=== PATIENT | male | born 1950 | race Caucasian/White ===

== ENCOUNTER 2017-01-02 18:27 | Emergency (ER) | payer MEDICAID, MEDICARE ==
[2017-01-02] MEDS ORDERED: HYDROMORPHONE HCL 1 MG/ML CPJ IVP ONE (18:43)
[2017-01-02] MEDS ORDERED: ONDANSETRON HCL IV 4 MG/2 ML VIAL IVP ONE (18:43)
[2017-01-02] MEDS ORDERED: 0.9 % SODIUM CHLORIDE 1000ML 500 ML IV SCH (18:45)
--- NOTE | 2017-01-02 18:48 | Emergency Department Record ---
History of Present Illness - General Chief Complaint: Back Pain/Injury Stated Complaint: BACK AND SIDE PAIN Time Seen by Provider: 01/02/17 18:43 Source: Patient Mode of Arrival: Ambulatory Limitations: No limitations - History of Present Illness Initial Comments: 66 yo male presents to ED with a CC of sudden-onset right sided flank pain that began approximately 8.5 hours ago. Patient reports that the pain radiates around to the right lower abdomen. Patient reports a previous history of low back pain, [facility], but reports today's symptoms are different. Patient took Valium that he reports did not help much. Patient denies fevers, chills, abdominal pain, or vomiting symptoms. Patient is s/p ninfa and partial liver resection for previous cancer. MD Complaint: Back pain Onset/Timin -: Hour(s) Similar Symptoms Previously: Yes Place: Home Severity scale (1-10): 10 Quality: Sharp, Stabbing Consistency: Constant Improves With: None Worsens With: None Context: Unknown Treatments Prior to Arrival: Prescription analgesics - Related Data Previous Rx's Medication Instructions Recorded Hydrocodone/Acetaminophen [B[place]ox[place] 1 tab PO Q6H PRN #20 tab 01/02/17 7.5mg/325mg] Travel Screening - Travel/Exposure Within Last 30 Days Have you traveled within the last 30 days?: No - Travel/Exposure Within Last Year Have you traveled outside the [place] in the last year?: No - Additonal Travel Details Have you been exposed to anyone with a communicable illness?: No - Travel Symptoms Symptom Screening: None Review of Systems Constitutional: Denies: Chills, Fever, Malaise, Night sweats Eyes: Denies: Eye discharge, Eye pain ENT: Denies: Congestion, Ear pain, Epistaxis Respiratory: Denies: Cough, Dyspnea Cardiovascular: Denies: Chest pain, Dyspnea on exertion Endocrine: Denies: Fatigue, Heat or cold intolerance Gastrointestinal: Denies: Abdominal pain, Nausea, Vomiting Genitourinary: Denies: Incontinence, Retention Musculoskeletal: Reports: Back pain. Denies: Arthralgia, Gout, Joint swelling Skin: Denies: Bruising, Change in color, Change in hair/nails Neurological: Denies: Abnormal gait, Confusion, Headache, Seizure Psychiatric: Denies: Anxiety Hematological/Lymphatic: Denies: Anemia, Blood Clots Past Medical History - SOCIAL HISTORY Smoking Status: Never smoker Alcohol Use: None Drug Use: None - RESPIRATORY Hx Respiratory Disorders: No - CARDIOVASCULAR Hx Cardio Disorders: Yes Hx Hypertension: Yes - NEURO Hx Neuro Disorders: No - GI Hx GI Disorders: Yes Hx Liver Disease: Yes - Hx Genitourinary Disorders: No - ENDOCRINE Hx Endocrine Disorders: No - MUSCULOSKELETAL Hx Musculoskeletal Disorders: Yes - PSYCH Hx Psych Problems: No - HEMATOLOGY/ONCOLOGY Hx Hematology/Oncology Disorders: No Family Medical History Any Significant Family History?: No Hx Cancer: Father Hx Heart Disease: Father, Mother Physical Exam - General General Appearance: Alert, Oriented x3, Cooperative, Moderate distress (due to pain symptoms) Limitations: No limitations - Head Head exam: Atraumatic, Normocephalic, Normal inspection Head exam detail: negative: Abrasion, Contusion, Bautista's sign, General tenderness, Hematoma, Laceration - Eye Eye exam: Normal appearance. negative: Conjunctival injection, Periorbital swelling, Periorbital tenderness, Scleral icterus - ENT Ear exam: negative: Auricular hematoma, Auricular trauma Nasal Exam: negative: Active bleeding, Discharge, Dried blood, Foreign body, Sinus tenderness Mouth exam: negative: Drooling, Laceration, Muffled voice, Tongue elevation - Neck Neck exam: Normal inspection. negative: Meningismus, Tenderness - Respiratory Respiratory exam: Normal lung sounds bilaterally. negative: Respiratory distress, Rhonchi, Stridor, Wheezes - Cardiovascular Cardiovascular Exam: Regular rate, Normal rhythm, Normal heart sounds - GI/Abdominal GI/Abdominal exam: Soft. negative: Distended, Rebound, Rigid, Tenderness - Rectal Rectal exam: Deferred - exam: Deferred - Extremities Extremities exam: Normal inspection. negative: Calf tenderness, Pedal edema, Tenderness - Back Back exam: Reports: CVA tenderness (R). Denies: Paraspinal tenderness - Neurological Neurological exam: Alert, Normal gait, Oriented X3, Other (Plantar flexion/EHL/ Dosiflexion are symmetric and 5/5 bilaterally.). negative: Motor sensory deficit - Psychiatric Psychiatric exam: Normal affect, Normal mood - Skin Skin exam: Normal color. negative: Abrasion Type of lesion: negative: abrasion Course Vital Signs 01/02/17 18:30 Temperature 97.8 F - Reevaluation(s) Reevaluation #1: 01/02/17 19:12 Labs reviewed and are grossly unremarkable for an acute process. Patient is currently in CT imaging. Reevaluation #2: 01/02/17 19:45 CT Abdomen and Pelvis: No acute process, chronic changes are present. Reevaluation #3: 01/02/17 19:50 Patient and family were updated on all results, patient reports that his pain symptoms are down to 2/10 and that he is feeling much better. Patient appears stable for discharge at this time on [place]ox[place] for his pain symptoms, reports that he has an appointment Thursday (3 days) with his pain specialist at [facility]. Medical Decision Making - Lab Data Result diagrams: 01/02/17 18:44 01/02/17 18:44 Disposition Disposition: Discharge Clinical Impression: Low back pain Qualifiers: Chronicity: acute Back pain laterality: right Sciatica presence: without sciatica Qualified Code(s): M54.5 - Low back pain Disposition: Home, Self-Care Condition: (2) Stable Instructions: Low Back Strain (ED) Additional Instructions: Return to ED if your symptoms worsen or if you have any concerns. Follow-up with [facility] as scheduled Thursday. Biloxi as directed for you pain symptoms. Prescriptions: Hydrocodone/Acetaminophen [Biloxi 7.5mg/325mg] 1 tab PO Q6H PRN #20 tab PRN Reason: Pain - General Forms: Patient Portal Access Time of Disposition: 19:53
[2017-01-02 18:51] LABS: URINE APPEARANCE CLEAR; URINE BILIRUBIN NEGATIVE (NEGATIVE); URINE BLOOD NEGATIVE (NEGATIVE); URINE COLOR YELLOW; URINE GLUCOSE (UA) NEGATIVE (NEGATIVE); URINE KETONE NEGATIVE (NEGATIVE); URINE LEUKOCYTE ESTERASE NEGATIVE (NEGATIVE); URINE NITRITE NEGATIVE (NEGATIVE); URINE PROTEIN NEGATIVE (NEGATIVE); URINE UROBILINOGEN 0.2 E.U./dL (0.20 - 1.00)
[2017-01-02 18:52] LABS: BASO % 0.3 % (0-6); EOS % 1.4 % (0-6); GRAN % 64.7 % (47-80); HEMOGLOBIN 14.9 gm/dl (14.0-18.0); LYMPH % 23.8 % (16-45); MEAN CELL VOLUME 92.7 fl (81-97); MEAN CORPUSCULAR HEMOGLOBIN 32.9 pg (27-33); MEAN CORPUSCULAR HGB CONC 35.5 g/dl (32-36); MEAN PLATELET VOLUME 10.6 fl (7.4-10.4); MONO % 9.8 % (0-9); PLATELET COUNT 122 K/uL (130-400); RED BLOOD COUNT 4.53 M/uL (4.40-5.70); RED CELL DISTRIBUTION WIDTH 12.8 % (11.5-14.5); WHITE BLOOD COUNT W/O DIFF 7.1 K/uL (4.2-12.2)
[2017-01-02 19:03] LABS: ALB/GLOB RATIO 1.4 (1.1-1.8); ALBUMIN 4.6 gm/dL (3.5-5.0); ALKALINE PHOSPHATASE 121 U/L (38-126); ALT/SGPT 33 U/L (21-72); ANION GAP 16.6 (7-16); AST/SGOT 33 U/L (17-59); BILIRUBIN,TOTAL 1.47 mg/dL (0.2-1.3); BLOOD UREA NITROGEN 10 mg/dL (9-20); CARBON DIOXIDE 25.4 mmol/L (22-30); CREATININE 0.8 mg/dL (0.66-1.25); EST GLOMERULAR FILTRATION RATE > 60 ml/min; GLUCOSE,RANDOM 110 mg/dL (70-110)
[2017-01-02] MEDS ORDERED: HYDROCODONE/APAP 7.5/325MG TABLET PO ONE (19:54)
--- NOTE | 2017-01-06 08:55 | CT SCAN REPORT ---
EXAM: CT OF THE ABDOMEN AND PELVIS WITHOUT CONTRAST HISTORY: BACK PAIN EXTENDING INTO THE LOWER RIGHT FLANK. KIDNEY STONE HISTORY. TECHNIQUE: Helical CT examination of the abdomen and pelvis was performed without oral or intravenous contrast administration. Lack of oral and IV contrast utilization limits evaluation of the bowel and solid viscera respectively. Comparison: None. FINDINGS: A 2.5 cm noncalcified subpleural nodule is noted in the posterior right lower lobe. There is a calcified nodule in the central right lower lobe as seen on image 4 measuring 4 mm. The lung bases are otherwise clear and there is no pleural or pericardial effusion. The heart is borderline enlarged. There is calcification of the visualized distal right coronary artery. The margins of the liver are micronodular consistent with cirrhosis. Post surgical changes are noted along the inferior margin of the right liver lobe. Calcifications are scattered in the high posterior segment of the right liver lobe, nonspecific. No definite noncalcified hepatic mass is seen. The spleen is mildly enlarged and there are calcified granulomata within. The spleen is otherwise normal in appearance. There is question of a vascular coil near the right margin of the pancreatic head contiguous with the proximal duodenum. No suspicious focal abnormality is noted within the pancreas nor adrenal glands. Varices are suggested between the spleen and left kidney suspicious for a splenorenal shunt. No well defined renal calculus is seen nor is there evidence of renal mass. The renal collecting systems are nondilated and no definite ureteral calculus is seen. The prostate gland is mildly enlarged. No intrinsic urinary bladder abnormality is seen. No definite pelvic mass nor lymphadenopathy. No free pelvic fluid. There is a small fat filled left inguinal hernia. There is a small amount of soft tissue density in the region of the proximal aspect of the right inguinal canal. This may relate to prior herniorrhaphy. No gross bowel dilatation nor bowel wall thickening is seen. The appendix is visualized and normal in appearance. A few fat filled ventral wall hernias are demonstrated with the largest located approximately 4 cm above the umbilicus measuring 3.7 x 2.8 x 2.0 cm. These appear uncomplicated. A small fat filled umbilical hernia is also demonstrated. No lytic or blastic bone lesion is seen. There is diffuse atherosclerosis without aneurysmal dilatation of the abdominal aorta nor iliac arteries. No lytic or blastic bone lesion. There are degenerative changes scattered throughout the visualized spine. There is probable central canal stenosis at the L3-L4 and L4-L5 levels. There is mild diverticulosis of the left colon without evidence of diverticulitis. IMPRESSION: 1. NO CONVINCING CT EVIDENCE OF AN ACUTE INTRAABDOMINAL NOR INTRAPELVIC PROCESS. NO EVIDENCE OF OBSTRUCTIVE UROPATHY. 2. NORMAL APPENDIX. 3. MILD DIVERTICULOSIS OF THE DISTAL COLON WITHOUT EVIDENCE OF DIVERTICULITIS. 4. 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 5. POST SURGICAL CHANGES ALONG THE INFERIOR POSTERIOR MARGIN OF THE RIGHT LIVER LOBE. 6. UNCOMPLICATED VENTRAL WALL HERNIAS AND LEFT INGUINAL HERNIA. 7. SMALL AMOUNT OF SOFT TISSUE DENSITY IN THE REGION OF THE PROXIMAL RIGHT INGUINAL CANAL. THIS IS NONSPECIFIC THOUGH MAY RELATE TO POST SURGICAL CHANGE. 8. HEALED GRANULOMATOUS DISEASE WITHIN THE LIVER, SPLEEN, AND RIGHT LUNG BASE. 9. 2.5 MM NONOBSTRUCTING CALCULUS IN THE POSTERIOR RIGHT LUNG BASE. JOB NUMBER: [id number] MTDD
== END 2017-01-02 20:11 | disposition home or self-care (01) ==
LOC: ER 18:27
DX: M54.5 Low back pain (principal); R10.31 Right lower quadrant pain; I10 Essential (primary) hypertension; Z85.05 Personal history of malignant neoplasm of liver
CPT/HCPCS: 99284 ×2; 96374; 96375; 85025; 80053; 81003; 74176; J2405; J1170; J7030